=== PATIENT | female | born 1930 | race African-American/Black ===

== ENCOUNTER 2017-05-21 14:49 | Inpatient (IN) ==
[2017-05-21 17:03] LABS: Basophils % 0.9 % (0.0-0.8); Eosinophils # 0.1 10*3/uL (0.0-0.87); Eosinophils % 2.5 % (0.00-10.9); Hematocrit 47.7 VOL% (35.7-47.0); Hemoglobin 16.3 GM/DL (12.0-16.0); Immature Granulocytes % 0.5 %; Immature Granulocytes Absolute 0.02 #; Lymphocytes # 1.4 10*3/uL (1.4-4.0); Lymphocytes % 32.7 % (21.3-54.2); Mean Corpuscular HGB Conc 34.2 GM/DL (32-36); Mean Corpuscular Hemoglobin 32 PG (27-34); Mean Platelet Volume 11.7 FL (9.6-12.0); Monocytes # 0.9 10*3/uL (0.11-0.8); Monocytes % 19.3 % (1.7-12.7); Neutrophils % 44.1 % (38.7-73.9); Platelet Count 135 T/CUMM (130-400); Red Blood Count 5.13 MC/CUMM (3.8-5.5); Red Cell Distribution Width 14.6 % (9.3-17.3); White Blood Count 4.4 T/CUMM (4-12)
[2017-05-21] MEDS ORDERED: hydrALAZINE 20 MG/1 ML VIAL ONE (17:09)
[2017-05-21 17:13] LABS: Ammonia 11 UMOL/L (11-32)
[2017-05-21] MEDS ORDERED: hydrALAZINE 20 MG/1 ML VIAL IV STA (17:14)
[2017-05-21 17:15] LABS: PT Patient Result 10.7 SECS; Partial Thromboplastin Time 25.6 SECS (0-40)
[2017-05-21 17:17] LABS: Apearance,Urine Slightly Hazy (Clear); Bacteria,Urine Occasional /HPF (Few); Bilirubin,Urine Negative (Negative); Blood, Urine Small mg/dL (Negative); Glucose,Urine (UA) Negative (Negative); Ketones,Urine Negative (Negative); Mucus,Urine Occasional /LPF (Occasional); Nitrite,Urine Negative (Negative); Protein,Urine Negative; RBC,Urine 6 /HPF (0-4); Squamous Epithelial Cell,Urine Occasional /HPF (0-10); Urine Color Yellow (Yellow); Urine Specific Gravity 1.023 (1.001-1.035); WBC,Urine 39 /HPF (0-6)
[2017-05-21 17:20] LABS: Alanine Aminotransferase 30 U/L (13-56); Albumin 3.5 G/DL (3.4-5.0); Alkaline Phosphatase 121 U/L (45-117); Aspartate Amino Transferase 27 U/L (0-37); Blood Urea Nitrogen 16 MG/DL (7-18); Calcium 9.3 MG/DL (8.5-10.1); Glucose 105 MG/DL (74-106); Osmolality,Calculated 286.8 MOS/KG (273-304); Potassium 4.6 MMOL/L (3.5-5.1); Sodium 144 MMOL/L (136-145); Total Protein 7.1 G/DL (6.4-8.3); Troponin I Only < 0.015 NG/ML (0.00-0.045)
[2017-05-21] MEDS ORDERED: cefTRIAXone 1,000 MG in SODIUM CHLORIDE 0.9% 100 ML IV STA (17:28)
[2017-05-21 17:36] LABS: Eosinophils 3 % (0-10); Lymphocytes 29 % (20-55); Platelet Estimate Adequate; Segmented Neutrophils 49 % (50-85); Total Cells Counted 100
[2017-05-21] MEDS ORDERED: cefTRIAXone 1,000 MG VIAL ONE (17:39)
[2017-05-21] MEDS ORDERED: DEXTROSE 50% 25 GM/50 ML VIAL IV PRN (20:49)
[2017-05-21] MEDS ORDERED: ONDANSETRON 4 MG/2 ML VIAL IV PRN (20:49)
[2017-05-21] MEDS ORDERED: ACETAMINOPHEN 325 MG TABLET PO PRN (20:49)
[2017-05-21] MEDS ORDERED: GLUCAGON 1 MG VIAL IM PRN (20:49)
[2017-05-21] MEDS: INSULIN LISPRO 100 UNIT/ML SUBCUT SCH (21:06)
[2017-05-21] MEDS: DOCUSATE SODIUM 100 MG CAPSULE PO SCH (21:06)
[2017-05-21] MEDS: INSULIN NPH/REGULAR 70/30 100 UNIT/ML SUBCUT SCH (21:06)
[2017-05-21] MEDS: POTASSIUM CHLORIDE 8 MEQ CAPSULE PO SCH (21:06)
[2017-05-21] MEDS: SODIUM CHLORIDE 0.9% 1,000 ML IV SCH (21:10)
[2017-05-22] MEDS: SODIUM CHLORIDE 0.9% 1,000 ML IV SCH ×3 (04:52→21:01)
[2017-05-22 07:32] LABS: Basophils # 0.1 10*3/uL (0.0-0.2); Basophils % 1.2 % (0.0-0.8); Eosinophils # 0.1 10*3/uL (0.0-0.87); Hematocrit 45.8 VOL% (35.7-47.0); Hemoglobin 15.5 GM/DL (12.0-16.0); Immature Granulocytes % 0.2 %; Immature Granulocytes Absolute 0.01 #; Lymphocytes # 1.5 10*3/uL (1.4-4.0); Mean Corpuscular HGB Conc 33.8 GM/DL (32-36); Mean Corpuscular Hemoglobin 31 PG (27-34); Mean Platelet Volume 11.7 FL (9.6-12.0); Monocytes # 0.7 10*3/uL (0.11-0.8); Neutrophils # 1.9 10*3/uL (1.4-7.4); Neutrophils % 44.6 % (38.7-73.9); Platelet Count 124 T/CUMM (130-400); Red Blood Count 4.98 MC/CUMM (3.8-5.5); Red Cell Distribution Width 14.6 % (9.3-17.3); White Blood Count 4.3 T/CUMM (4-12)
[2017-05-22 07:57] LABS: Calcium 8.8 MG/DL (8.5-10.1); Osmolality,Calculated 292.7 MOS/KG (273-304); Potassium 3.6 MMOL/L (3.5-5.1)
[2017-05-22 08:05] LABS: Atypical Lymphocytes Few; Band Neutrophils 6 % (0-10); Eosinophils 4 % (0-10); Lymphocytes 32 % (20-55); Segmented Neutrophils 38 % (50-85); Total Cells Counted 100
[2017-05-22] MEDS: DOCUSATE SODIUM 100 MG CAPSULE PO SCH ×2 (08:54→20:50)
[2017-05-22] MEDS: PANTOPRAZOLE 40 MG TABLET PO SCH (08:54)
[2017-05-22] MEDS: INSULIN NPH/REGULAR 70/30 100 UNIT/ML SUBCUT SCH ×2 (08:55→20:55)
[2017-05-22] MEDS: INSULIN LISPRO 100 UNIT/ML SUBCUT SCH ×4 (08:55→20:54)
[2017-05-22] MEDS: POTASSIUM CHLORIDE 8 MEQ CAPSULE PO SCH ×3 (08:55→20:49)
[2017-05-22] MEDS: LOSARTAN/HCTZ 50-12.5 MG TABLET PO SCH (20:49)
[2017-05-22] MEDS: FOLIC ACID 1 MG TABLET PO SCH (20:49)
[2017-05-22] MEDS: ATENOLOL 25 MG TABLET PO SCH (20:50)
[2017-05-22] MEDS: ASPIRIN EC 81 MG TABLET PO SCH (20:50)
[2017-05-22] MEDS: PRAVASTATIN 40 MG TABLET PO SCH (20:50)
[2017-05-22] MEDS: TOLTERODINE LA 4 MG CAPSULE PO SCH (20:50)
[2017-05-23] MEDS: INSULIN LISPRO 100 UNIT/ML SUBCUT SCH ×4 (08:31→21:24)
[2017-05-23] MEDS: DOCUSATE SODIUM 100 MG CAPSULE PO SCH ×2 (08:34→21:20)
[2017-05-23] MEDS: POTASSIUM CHLORIDE 8 MEQ CAPSULE PO SCH ×3 (08:34→21:20)
[2017-05-23] MEDS: PANTOPRAZOLE 40 MG TABLET PO SCH (08:34)
[2017-05-23] MEDS: INSULIN NPH/REGULAR 70/30 100 UNIT/ML SUBCUT SCH ×2 (08:34→21:24)
[2017-05-23] MEDS: SODIUM CHLORIDE 0.9% 1,000 ML IV SCH (12:37)
[2017-05-23] MEDS ORDERED: HYOSCYAMINE 0.125 MG TABLET PO PRN (13:33)
[2017-05-23] MEDS: PRAVASTATIN 40 MG TABLET PO SCH (21:20)
[2017-05-23] MEDS: ASPIRIN EC 81 MG TABLET PO SCH (21:20)
[2017-05-23] MEDS: TOLTERODINE LA 4 MG CAPSULE PO SCH (21:20)
[2017-05-23] MEDS: FOLIC ACID 1 MG TABLET PO SCH (21:20)
[2017-05-23] MEDS: LOSARTAN/HCTZ 50-12.5 MG TABLET PO SCH (21:20)
[2017-05-23] MEDS: ATENOLOL 25 MG TABLET PO SCH (21:20)
[2017-05-24] MEDS: INSULIN LISPRO 100 UNIT/ML SUBCUT SCH ×4 (08:53→21:11)
[2017-05-24] MEDS: POTASSIUM CHLORIDE 8 MEQ CAPSULE PO SCH ×3 (08:54→21:10)
[2017-05-24] MEDS: PANTOPRAZOLE 40 MG TABLET PO SCH (08:54)
[2017-05-24] MEDS: DOCUSATE SODIUM 100 MG CAPSULE PO SCH ×2 (08:54→21:11)
[2017-05-24] MEDS: INSULIN NPH/REGULAR 70/30 100 UNIT/ML SUBCUT SCH ×2 (08:55→21:09)
[2017-05-24] MEDS: SODIUM CHLORIDE 0.9% 1,000 ML IV SCH (09:02)
[2017-05-24] MEDS: PRAVASTATIN 40 MG TABLET PO SCH (21:10)
[2017-05-24] MEDS: FOLIC ACID 1 MG TABLET PO SCH (21:10)
[2017-05-24] MEDS: CIPROFLOXACIN 500 MG TABLET PO SCH (21:10)
[2017-05-24] MEDS: LOSARTAN/HCTZ 50-12.5 MG TABLET PO SCH (21:10)
[2017-05-24] MEDS: TOLTERODINE LA 4 MG CAPSULE PO SCH (21:10)
[2017-05-24] MEDS: ASPIRIN EC 81 MG TABLET PO SCH (21:11)
[2017-05-24] MEDS: ATENOLOL 25 MG TABLET PO SCH (21:11)
[2017-05-25] MEDS: SODIUM CHLORIDE 0.9% 1,000 ML IV SCH ×2 (03:40→10:25)
[2017-05-25 06:19] LABS: Basophils # 0.1 10*3/uL (0.0-0.2); Basophils % 1.2 % (0.0-0.8); Eosinophils # 0.2 10*3/uL (0.0-0.87); Eosinophils % 4.2 % (0.00-10.9); Hematocrit 42.6 VOL% (35.7-47.0); Hemoglobin 14.3 GM/DL (12.0-16.0); Immature Granulocytes % 0.5 %; Immature Granulocytes Absolute 0.02 #; Lymphocytes # 1.2 10*3/uL (1.4-4.0); Lymphocytes % 28.1 % (21.3-54.2); Mean Corpuscular HGB Conc 33.6 GM/DL (32-36); Mean Corpuscular Hemoglobin 31 PG (27-34); Mean Corpuscular Volume 93.2 FL (87-102); Mean Platelet Volume 12.4 FL (9.6-12.0); Monocytes # 0.8 10*3/uL (0.11-0.8); Monocytes % 18.1 % (1.7-12.7); Neutrophils # 2.1 10*3/uL (1.4-7.4); Neutrophils % 47.9 % (38.7-73.9); Platelet Count 117 T/CUMM (130-400); Red Blood Count 4.57 MC/CUMM (3.8-5.5); Red Cell Distribution Width 14.7 % (9.3-17.3); White Blood Count 4.3 T/CUMM (4-12)
[2017-05-25 06:46] LABS: Eosinophils 1 % (0-10); Lymphocytes 32 % (20-55); Myelocytes 1 %; Platelet Estimate Decreased; Polychromasia Slight; Segmented Neutrophils 50 % (50-85); Total Cells Counted 100
[2017-05-25 06:47] LABS: Calcium 8.3 MG/DL (8.5-10.1); Magnesium 1.8 MG/DL (1.8-2.4); Osmolality,Calculated 295.4 MOS/KG (273-304); Potassium 3.9 MMOL/L (3.5-5.1)
[2017-05-25] MEDS: INSULIN LISPRO 100 UNIT/ML SUBCUT SCH ×4 (07:58→21:06)
[2017-05-25] MEDS: CIPROFLOXACIN 500 MG TABLET PO SCH ×2 (09:03→21:05)
[2017-05-25] MEDS: DOCUSATE SODIUM 100 MG CAPSULE PO SCH ×2 (09:03→21:05)
[2017-05-25] MEDS: INSULIN NPH/REGULAR 70/30 100 UNIT/ML SUBCUT SCH ×2 (09:03→21:06)
[2017-05-25] MEDS: POTASSIUM CHLORIDE 8 MEQ CAPSULE PO SCH ×3 (09:03→21:04)
[2017-05-25] MEDS: PANTOPRAZOLE 40 MG TABLET PO SCH (09:03)
[2017-05-25] MEDS: LOSARTAN/HCTZ 50-12.5 MG TABLET PO SCH (21:04)
[2017-05-25] MEDS: ATENOLOL 25 MG TABLET PO SCH (21:05)
[2017-05-25] MEDS: ASPIRIN EC 81 MG TABLET PO SCH (21:05)
[2017-05-25] MEDS: FOLIC ACID 1 MG TABLET PO SCH (21:05)
[2017-05-25] MEDS: TOLTERODINE LA 4 MG CAPSULE PO SCH (21:05)
[2017-05-25] MEDS: PRAVASTATIN 40 MG TABLET PO SCH (21:05)
[2017-05-25 22:12] VITALS: BP 157/76
[2017-05-27] MEDS ORDERED: METHOTREXATE 2.5 MG TABLET PO SCH (09:00)
== END 2017-05-25 21:25 | disposition swing bed (61) | DRG 690 ==
LOC: N.ED 14:49 → N.EDINP 17:29 → N.5E 18:03
PROVIDERS: ADMIT Internal Medicine; ATTEND Internal Medicine

== ENCOUNTER 2017-06-19 17:27 | Inpatient (IN) ==
[2017-06-19 18:37] LABS: Basophils # 0.1 10*3/uL (0.0-0.2); Basophils % 1.1 % (0.0-0.8); Eosinophils # 0.2 10*3/uL (0.0-0.87); Eosinophils % 3.8 % (0.00-10.9); Hematocrit 44.4 VOL% (35.7-47.0); Hemoglobin 14.9 GM/DL (12.0-16.0); Immature Granulocytes % 0.9 %; Immature Granulocytes Absolute 0.04 #; Lymphocytes # 1.5 10*3/uL (1.4-4.0); Lymphocytes % 32.3 % (21.3-54.2); Mean Corpuscular HGB Conc 33.6 GM/DL (32-36); Mean Corpuscular Hemoglobin 31 PG (27-34); Mean Corpuscular Volume 93.5 FL (87-102); Mean Platelet Volume 11.1 FL (9.6-12.0); Monocytes # 0.7 10*3/uL (0.11-0.8); Monocytes % 14.6 % (1.7-12.7); Neutrophils # 2.1 10*3/uL (1.4-7.4); Neutrophils % 47.3 % (38.7-73.9); Platelet Count 175 T/CUMM (130-400); Red Blood Count 4.75 MC/CUMM (3.8-5.5); Red Cell Distribution Width 14.3 % (9.3-17.3); White Blood Count 4.5 T/CUMM (4-12)
[2017-06-19 18:42] LABS: Apearance,Urine Slightly Hazy (Clear); Bilirubin,Urine Negative (Negative); Blood, Urine Negative (Negative); Glucose,Urine (UA) Negative (Negative); Hyaline Casts,Urine 2 /LPF (0-3); Ketones,Urine Negative (Negative); Nitrite,Urine Negative (Negative); Protein,Urine Negative; RBC,Urine 1 /HPF (0-4); Squamous Epithelial Cell,Urine Occasional /HPF (0-10); Urine Color Yellow (Yellow); Urine Specific Gravity 1.015 (1.001-1.035); Urine Urobilinogen < 2.0 EU/DL (0.2-1.0); WBC,Urine 3 /HPF (0-6)
[2017-06-19 18:44] LABS: Partial Thromboplastin Time 26.4 SECS (0-40)
[2017-06-19 18:52] LABS: Lactic Acid 1.6 MMOL/L (0.4-2.0)
[2017-06-19 18:54] LABS: Alanine Aminotransferase 30 U/L (13-56); Albumin 3.3 G/DL (3.4-5.0); Alkaline Phosphatase 121 U/L (45-117); Aspartate Amino Transferase 22 U/L (0-37); Bilirubin,Indirect 0.3 MG/DL (0.0-1.0); Blood Urea Nitrogen 29 MG/DL (7-18); Calcium 9.3 MG/DL (8.5-10.1); Glucose 112 MG/DL (74-106); Magnesium 2.3 MG/DL (1.8-2.4); Potassium 4.8 MMOL/L (3.5-5.1); Sodium 143 MMOL/L (136-145); Troponin I Only < 0.015 NG/ML (0.00-0.045)
[2017-06-19 18:55] LABS: ABG Base Excess 1.6 MMOL/L (-2.5-2.5); ABG HCO3 25.7 MMOL/L (20-26); ABG PCO2 38.3 MM HG (35-48); ABG PH 7.434 (7.35-7.45); ABG PO2 75.5 MM HG (80-95); ABG TCO2 21.9 MMOL/L (23-27)
[2017-06-19] MEDS ORDERED: ASPIRIN CHEW 81 MG TABLET PO STA (22:27)
[2017-06-19] MEDS ORDERED: ASPIRIN 325 MG TABLET ONE (23:01)
[2017-06-19] MEDS ORDERED: DEXTROSE 50% 25 GM/50 ML VIAL IV PRN (23:42)
[2017-06-19] MEDS ORDERED: ACETAMINOPHEN 325 MG TABLET PO PRN (23:42)
[2017-06-19] MEDS ORDERED: GLUCAGON 1 MG VIAL IM PRN (23:42)
[2017-06-19] MEDS ORDERED: ONDANSETRON 4 MG/2 ML VIAL IV PRN (23:42)
[2017-06-20] MEDS: SODIUM CHLORIDE 0.9% 1,000 ML IV SCH ×2 (00:15→07:40)
[2017-06-20] MEDS: INSULIN REGULAR 100 UNIT/ML SUBCUT SCH ×5 (00:40→22:29)
[2017-06-20] MEDS ORDERED: INFLUENZA VIRUS VACCINE 0.5 ML SYRINGE IM ONE (01:37)
[2017-06-20] MEDS ORDERED: ATENOLOL 25 MG TABLET PO SCH (09:00)
[2017-06-20] MEDS ORDERED: ASPIRIN EC 81 MG TABLET PO SCH (09:00)
[2017-06-20] MEDS: DONEPEZIL 5 MG TABLET PO SCH (09:55)
[2017-06-20] MEDS: LOSARTAN/HCTZ 50-12.5 MG TABLET PO SCH (09:55)
[2017-06-20] MEDS: PRAVASTATIN 40 MG TABLET PO SCH (09:55)
[2017-06-20] MEDS ORDERED: amLODIPine 5 MG TABLET PO SCH (12:30)
[2017-06-20] MEDS: SODIUM CHLORIDE 0.45% 1,000 ML IV SCH (12:49)
[2017-06-20] MEDS: FOLIC ACID 1 MG TABLET PO SCH (12:50)
[2017-06-20] MEDS ORDERED: INSULIN NPH/REGULAR 70/30 100 UNIT/ML SUBCUT SCH (13:00)
[2017-06-20] MEDS: POTASSIUM CHLORIDE 8 MEQ CAPSULE PO SCH (15:54)
[2017-06-20] MEDS ORDERED: amLODIPine 5 MG TABLET PO ONE (20:43)
[2017-06-20] MEDS: METOPROLOL TARTRATE 25 MG TABLET PO SCH (21:23)
[2017-06-21] MEDS: SODIUM CHLORIDE 0.45% 1,000 ML IV SCH ×3 (01:07→20:12)
[2017-06-21 06:30] LABS: Eosinophils # 0.2 10*3/uL (0.0-0.87); Hematocrit 41.4 VOL% (35.7-47.0); Immature Granulocytes Absolute 0.04 #; Lymphocytes # 1.1 10*3/uL (1.4-4.0); Lymphocytes % 25.4 % (21.3-54.2); Mean Corpuscular HGB Conc 33.8 GM/DL (32-36); Mean Corpuscular Hemoglobin 31 PG (27-34); Mean Corpuscular Volume 92.2 FL (87-102); Mean Platelet Volume 11.2 FL (9.6-12.0); Monocytes # 0.7 10*3/uL (0.11-0.8); Monocytes % 16.4 % (1.7-12.7); Neutrophils # 2.2 10*3/uL (1.4-7.4); Neutrophils % 51.2 % (38.7-73.9); Platelet Count 156 T/CUMM (130-400); Red Blood Count 4.49 MC/CUMM (3.8-5.5); Red Cell Distribution Width 14.2 % (9.3-17.3); White Blood Count 4.2 T/CUMM (4-12)
[2017-06-21 07:07] LABS: Calcium 8.6 MG/DL (8.5-10.1); Osmolality,Calculated 293.7 MOS/KG (273-304); Potassium 4.4 MMOL/L (3.5-5.1); Risk Ratio 2.98
[2017-06-21 07:29] LABS: Eosinophils 4 % (0-10); Giant Platelets Few; Hypochromasia 1+; Lymphocytes 26 % (20-55); Platelet Estimate Normal; Segmented Neutrophils 59 % (50-85); Total Cells Counted 100
[2017-06-21 07:30] LABS: Ovalocytes Slight
[2017-06-21] MEDS: INSULIN REGULAR 100 UNIT/ML SUBCUT SCH ×4 (08:55→22:57)
[2017-06-21] MEDS: ASPIRIN EC 325 MG TABLET PO SCH (08:57)
[2017-06-21] MEDS: FOLIC ACID 1 MG TABLET PO SCH (08:57)
[2017-06-21] MEDS: PRAVASTATIN 40 MG TABLET PO SCH (08:57)
[2017-06-21] MEDS: DONEPEZIL 5 MG TABLET PO SCH (08:57)
[2017-06-21] MEDS: METOPROLOL TARTRATE 25 MG TABLET PO SCH ×2 (08:57→20:18)
[2017-06-21] MEDS: LOSARTAN/HCTZ 50-12.5 MG TABLET PO SCH (08:57)
[2017-06-21] MEDS: CLOPIDOGREL 75 MG TABLET PO SCH (08:57)
[2017-06-21] MEDS: amLODIPine 10 MG TABLET PO SCH (08:57)
[2017-06-21] MEDS: POTASSIUM CHLORIDE 8 MEQ CAPSULE PO SCH (08:57)
[2017-06-22] MEDS: SODIUM CHLORIDE 0.45% 1,000 ML IV SCH ×2 (06:19→16:03)
[2017-06-22 06:44] LABS: Calcium 8.7 MG/DL (8.5-10.1); Osmolality,Calculated 290.7 MOS/KG (273-304); Potassium 4.2 MMOL/L (3.5-5.1)
[2017-06-22] MEDS: DONEPEZIL 5 MG TABLET PO SCH (08:48)
[2017-06-22] MEDS: ASPIRIN EC 325 MG TABLET PO SCH (08:48)
[2017-06-22] MEDS: METOPROLOL TARTRATE 25 MG TABLET PO SCH ×2 (08:48→22:02)
[2017-06-22] MEDS: CLOPIDOGREL 75 MG TABLET PO SCH (08:48)
[2017-06-22] MEDS: amLODIPine 10 MG TABLET PO SCH (08:48)
[2017-06-22] MEDS: FOLIC ACID 1 MG TABLET PO SCH (08:48)
[2017-06-22] MEDS: PRAVASTATIN 40 MG TABLET PO SCH (08:48)
[2017-06-22] MEDS: INSULIN REGULAR 100 UNIT/ML SUBCUT SCH ×4 (08:49→22:01)
[2017-06-22] MEDS: LOSARTAN/HCTZ 50-12.5 MG TABLET PO SCH (08:50)
[2017-06-22] MEDS: POTASSIUM CHLORIDE 8 MEQ CAPSULE PO SCH (08:51)
[2017-06-23] MEDS: POTASSIUM CHLORIDE 8 MEQ CAPSULE PO SCH (08:30)
[2017-06-23] MEDS: LOSARTAN/HCTZ 50-12.5 MG TABLET PO SCH (08:30)
[2017-06-23] MEDS: CLOPIDOGREL 75 MG TABLET PO SCH (08:31)
[2017-06-23] MEDS: METOPROLOL TARTRATE 25 MG TABLET PO SCH (08:31)
[2017-06-23] MEDS: DONEPEZIL 5 MG TABLET PO SCH (08:31)
[2017-06-23] MEDS: INSULIN REGULAR 100 UNIT/ML SUBCUT SCH ×2 (08:31→14:03)
[2017-06-23] MEDS: amLODIPine 10 MG TABLET PO SCH (08:31)
[2017-06-23] MEDS: FOLIC ACID 1 MG TABLET PO SCH (08:31)
[2017-06-23] MEDS: ASPIRIN EC 325 MG TABLET PO SCH (08:31)
[2017-06-23] MEDS: PRAVASTATIN 40 MG TABLET PO SCH (08:31)
[2017-06-23 12:02] VITALS: BP 179/74
[2017-06-23] MEDS: SODIUM CHLORIDE 0.45% 1,000 ML IV SCH (14:07)
[2017-06-24] MEDS ORDERED: METHOTREXATE 2.5 MG TABLET PO SCH (09:00)
== END 2017-06-23 14:11 | DRG 69 ==
LOC: N.ED 17:27 → N.EDINP 22:28 → N.2E 23:01
PROVIDERS: ADMIT Internal Medicine; ATTEND Internal Medicine